=== PATIENT | female | born 1975 | race Asian ===

== ENCOUNTER 2018-08-03 14:01 | Emergency (ER) | payer BC, OTHER ==
[~2018-08-03] VITALS: Ht 160 cm; Wt 72.6 kg
--- NOTE | 2018-08-03 14:36 | NUR ---
Patient discharged to home in stable conditon. Written and verbal after care instructions given. Patient verbalizes understanding of instructions.
== END 2018-08-03 14:37 | disposition home or self-care (01) ==
LOC: ER 14:02
DX: L25.9 Unspecified contact dermatitis, unspecified cause (principal)
CPT/HCPCS: A4663